=== PATIENT | male | born 1970 | race African-American/Black ===

== ENCOUNTER 2018-07-22 11:30 | Outpatient (CLI) | payer BC ==
--- NOTE | 2018-07-22 13:51 | RAD ---
CERVICAL SPINE 3 VIEWS: HISTORY: Radiculopathy, neck pain. FINDINGS/IMPRESSION: No fracture or subluxation is seen. POS: [id number]
== END 2018-07-22 11:31 | disposition home or self-care (01) ==
LOC: RAD 11:30
PROVIDERS: ATTEND Family Medicine
DX: M54.12 Radiculopathy, cervical region (principal)
CPT/HCPCS: 72040

== ENCOUNTER 2018-08-15 10:20 | Emergency (ER) | payer BC | END 2018-08-15 11:13 | disposition home or self-care (01) | LOC: ERS 10:20 | DX: M54.12 Radiculopathy, cervical region (principal); E11.9 Type 2 diabetes mellitus without complications; I10 Essential (primary) hypertension; Z87.891 Personal history of nicotine dependence | CPT/HCPCS: 99283 ==